=== PATIENT | male | born 1975 | race Caucasian/White ===

== ENCOUNTER → 2017-04-24 | Outpatient (REF) | payer OTHER ==
[2017-04-24 11:43] LABS: MEAN CORPUSCULAR HEMOGLOBIN 31.3 pg (27.0-33.0); MEAN CORPUSCULAR HGB CONC 34.2 g/dl (32.0-36.5); MEAN CORPUSCULAR VOLUME 91.4 fl (80.0-96.0); WHITE BLOOD COUNT 6.7 K/mm3 (4.0-10.0)
== END ==
LOC: M LABDRAW1 09:58
PROVIDERS: ATTEND Orthopaedic Surgery
DX: T81.4XXA Infection following a procedure, initial encounter (principal); Y82.9 Unspecified medical devices associated with adverse incidents

== ENCOUNTER → 2017-05-02 | Outpatient (CLI) | payer OTHER ==
--- NOTE | 2017-05-02 12:24 | REP ---
TRIPLE PHASE BONE SCAN OF THE HUMERI: Following the intravenous administration of 22 mCi of technetium 99m MDP, patient's upper arms are imaged in the flow phase in the anterior and posterior projections. There is no abnormal blood flow seen. Immediate blood pool and 3.5 hour delayed images are performed of the upper arms in the anterior, posterior, both anterior and posterior oblique and both lateral projections. There is some minimal increased blood pooling in the region of the distal humeral shaft. There is an area of increased delayed activity in the distal right humeral shaft. There is no abnormal uptake in the left humerus. IMPRESSION: Minimal increased blood pooling with mild increased delayed activity in the distal third of the right humerus. Signed by Les Jack MD 05/02/2017 03:15 P
== END ==
LOC: M RAD 07:24
PROVIDERS: ATTEND Orthopaedic Surgery
DX: T84.610A Infection and inflammatory reaction due to internal fixation device of right humerus, initial encounter (principal); R93.7 Abnormal findings on diagnostic imaging of other parts of musculoskeletal system; Y79.2 Prosthetic and other implants, materials and accessory orthopedic devices associated with adverse incidents
CPT/HCPCS: 78315; A9503

== ENCOUNTER → 2017-05-30 | Outpatient (REF) | payer OTHER | LOC: M SFHCPLAZ 11:47 | PROVIDERS: ATTEND Internal Medicine Infectious Disease | DX: L98.8 Other specified disorders of the skin and subcutaneous tissue (principal) | CPT/HCPCS: 87070; 87077; 87186; 87205; G0463 ==

== ENCOUNTER → 2017-07-09 | Outpatient (CLI) | payer OTHER ==
--- NOTE | 2017-07-09 09:48 | REP ---
RIGHT SHOULDER: Three views of the right shoulder are performed. There is no acute fracture or dislocation. No osseous destruction is seen. There is mild spurring at the acromioclavicular joint as well as the inferior aspect of the glenohumeral joint. Small dense nodule in the right lung base is most consistent with a calcified granuloma. IMPRESSION: Mild degenerative changes. Signed by Les Jack MD 07/09/2017 01:10 P
[2017-07-09 13:48] LABS: BASO # 0.1 10^3/uL (0.0-0.2); BASO % 0.8 % (0.0-1.0); EOS # 0.2 10^3/uL (0.0-0.50); EOS % 3.3 % (0.0-3.0); IMMATURE GRANULOCYTE % 0.3 % (0-0); LYMPH # 2.5 10^3/uL (1.5-4.5); LYMPH % 34.3 % (24.0-44.0); MEAN CORPUSCULAR HEMOGLOBIN 29.4 pg (27.0-33.0); MEAN CORPUSCULAR HGB CONC 32.2 g/dl (32.0-36.5); MEAN CORPUSCULAR VOLUME 91.2 fl (80.0-96.0); MONO # 0.5 10^3/uL (0.0-0.8); MONO % 6.5 % (0.0-5.0); NEUTROPHILS % 54.8 % (36.0-66.0); PLATELET COUNT, AUTOMATED 224 10^3/uL (150-450); RED CELL DISTRIBUTION WIDTH 12.4 % (11.5-14.5); WHITE BLOOD COUNT 7.2 10^3/uL (4.0-10.0)
[2017-07-09 13:55] LABS: ANION GAP 8 MEQ/L (8-16); BLOOD UREA NITROGEN 18 MG/DL (7-18); CALCIUM LEVEL 9.5 MG/DL (8.5-10.1); CARBON DIOXIDE LEVEL 29 MEQ/L (21-32); CHLORIDE LEVEL 105 MEQ/L (98-107); CREATININE FOR GFR 1.39 MG/DL (0.70-1.30); GLOMERULAR FILTRATION RATE > 60.0 (>60); GLUCOSE, FASTING 102 MG/DL (70-105); POTASSIUM SERUM 4.3 MEQ/L (3.5-5.1); SODIUM LEVEL 142 MEQ/L (136-145)
[2017-07-09 14:20] LABS: ERYTHROCYTE SEDIMENTATION RATE 2 mm/hr (0-15)
== END ==
LOC: M SMT 08:24
PROVIDERS: ATTEND Internal Medicine Infectious Disease
DX: L98.8 Other specified disorders of the skin and subcutaneous tissue (principal)
CPT/HCPCS: 36415; 73030; 80048; 85025; 85652; 86140; G0463

== ENCOUNTER → 2017-10-01 | Outpatient (REF) | payer OTHER ==
[2017-10-01 12:47] LABS: BASO % 0.5 % (0.0-1.0); EOS # 0.1 10^3/uL (0.0-0.50); EOS % 1.8 % (0.0-3.0); HEMATOCRIT 43.5 % (42.0-52.0); HEMOGLOBIN 14.3 g/dl (14.0-18.0); LYMPH # 2.5 10^3/uL (1.5-4.5); LYMPH % 37.9 % (24.0-44.0); MEAN CORPUSCULAR HEMOGLOBIN 29.2 pg (27.0-33.0); MEAN CORPUSCULAR HGB CONC 32.9 g/dl (32.0-36.5); MONO # 0.4 10^3/uL (0.0-0.8); MONO % 6.3 % (0.0-5.0); NEUTROPHILS # 3.5 10^3/uL (1.8-7.7); NEUTROPHILS % 53.5 % (36.0-66.0); PLATELET COUNT, AUTOMATED 233 10^3/uL (150-450); RED BLOOD COUNT 4.89 10^6/uL (4.30-6.10); RED CELL DISTRIBUTION WIDTH 12.9 % (11.5-14.5); WHITE BLOOD COUNT 6.6 10^3/uL (4.0-10.0)
[2017-10-01 13:25] LABS: C REACTIVE PROTEIN QUANTITATIV < 0.30 MG/DL (0.00-0.30); FREE T4 1.39 NG/DL (0.76-1.46)
[2017-10-01 13:25] LABS: THYROID STIMULATING HORMONE 0.729 uIU/ML (0.358-3.740)
[2017-10-01 13:49] LABS: ERYTHROCYTE SEDIMENTATION RATE 2 mm/hr (0-15)
== END ==
LOC: M LABDRAW1 10:54
DX: M86.621 Other chronic osteomyelitis, right humerus (principal); E03.9 Hypothyroidism, unspecified

== ENCOUNTER → 2018-10-07 | Outpatient (CLI) | payer OTHER ==
[~2018-10-07] MED LIST: ISOVUE-370 76% 100ML VIAL (Q9967) As Ordered ONE
--- NOTE | 2018-10-07 16:42 | REP ---
Clinical: History of right lower lobe pulmonary nodule. Technique: Axial contrast enhanced images from the thoracic inlet to the upper abdomen using 100 ml Isovue 370 intravenous contrast material with coronal and sagittal re-formations. Comparison: None. Findings: A 10 mm calcified granuloma is identified at the right lung base along with partially calcified mediastinal and right hilar lymph nodes consistent with prior granulomas disease. Lung bolanos are otherwise well aerated and clear. No further acute consolidation, significant nodule or mass lesion. No pleural effusion. No pneumothorax. Tracheobronchial tree is patent. No axillary, hilar, or mediastinal adenopathy. Mediastinum demonstrates normal thoracic aorta, pulmonary vasculature and heart/pericardium. Musculoskeletal structures are intact. Limited upper abdomen demonstrates normal bilateral adrenal glands. Impression: Findings compatible with chronic granulomas disease. No significant acute mediastinal or pleuroparenchymal process. Electronically Signed by Doug Parrish MD 10/07/2018 04:34 P
== END ==
LOC: M RAD 15:56
PROVIDERS: ATTEND General Practice
DX: J84.10 Pulmonary fibrosis, unspecified (principal)
CPT/HCPCS: 71260; Q9967